=== PATIENT | male | born 1985 | race Caucasian/White ===

== ENCOUNTER → 2017-10-23 | Outpatient (CLI) | payer SELFPAY | LOC: M RAD 16:02 | DX: M51.36 Other intervertebral disc degeneration, lumbar region (principal) | CPT/HCPCS: 72148 ==

== ENCOUNTER 2018-02-26 20:34 | Emergency (ER) | payer OTHER, SELFPAY ==
[2018-02-26] MEDS: PERCOCET 5MG/325MG TAB PO (21:45)
== END 2018-02-26 23:01 | disposition home or self-care (01) ==
LOC: M ED 20:34
DX: S06.0X9A Concussion with loss of consciousness of unspecified duration, initial encounter (principal); S01.81XA Laceration without foreign body of other part of head, initial encounter; W55.22XA Struck by cow, initial encounter; Y92.71 Barn as the place of occurrence of the external cause
CPT/HCPCS: 70450